=== PATIENT | female | born 1935 | race Hispanic/Latino ===

== ENCOUNTER 2018-08-14 14:44 | Observation (INO) | payer MEDICARE ==
[~2018-08-14] VITALS: Ht 157.5 cm; Wt 67.8 kg
[2018-08-14] MEDS ORDERED: SODIUM CHLORIDE 0.9% 1000ML 1,000 ML IV STA (15:03)
--- NOTE | 2018-08-14 15:05 | NUR ---
DR. FLORES AT BEDSIDE FOR PATIENT EVAL AT THIS TIME.
--- NOTE | 2018-08-14 15:25 | NUR ---
X-RAY AT BEDSIDE FOR CXR.
[2018-08-14 15:33] LABS: BASOPHILS % 0.4 % (0.0-1.0); EOSINOPHILS % 0.3 % (0.0-6.0); HEMATOCRIT 44.5 % (34.2-44.1); HEMOGLOBIN 15.2 g/dL (12.0-16.0); LYMPHOCYTES # (AUTO) 1.1 (1.0-3.2); LYMPHOCYTES % 16.2 % (18.0-39.1); MEAN CORPUSCULAR HGB CONC 34.2 g/dL (31-35); MEAN CORPUSCULAR VOLUME 90.8 fL (81-99); MONOCYTES # (AUTO) 0.6 (0.2-0.8); MONOCYTES % 8.3 % (4.4-11.3); NEUTROPHILS # (AUTO) 5.1 (2.1-6.9); NEUTROPHILS % 74.5 % (38.7-80.0); PLATELET COUNT 253 x10e3/uL (140-360); RED CELL DISTRIBUTION WIDTH 13.2 % (11.7-14.4)
--- NOTE | 2018-08-14 15:43 | Diagnostic Imaging Report ---
EXAMINATION: CHEST SINGLE (PORTABLE) COMPARISON: None INDICATION: ^NEAR-SYNCOPE ^[id number] ^1524 DISCUSSION: Frontal view of the chest obtained at 1530 hours. HEART AND MEDIASTINUM: The heart is enlarged. The aorta is mildly ectatic. LINES: None. LUNGS: The lungs are well inflated and clear. No pneumonia or pulmonary edema. PLEURA: No pleural effusion or pneumothorax. BONES AND SOFT TISSUES: No focal osseous lesion. The soft tissues are normal. IMPRESSION: Mild cardiomegaly. No evidence of pulmonary edema or CHF. Signed by: Dr. Rose Keyes MD on 08/14/2018 3:40 PM
[2018-08-14 15:46] LABS: CLARITY,URINE HAZY (CLEAR); COLOR,URINE YELLOW (YELLOW)
[2018-08-14 15:48] LABS: BILIRUBIN,URINE NEGATIVE (NEGATIVE); KETONES,URINE NEGATIVE (NEGATIVE); LEUKOCYTE ESTERASE ,URINE 1+ (NEGATIVE); NITRITE,URINE NEGATIVE (NEGATIVE); PROTEIN,URINE DIPSTICK TRACE (NEGATIVE); URINE UROBILINOGEN 0.2 mg/dL (0.2 - 1)
[2018-08-14 16:00] LABS: INR 0.94; PROTHROMBIN TIME 13.1 seconds (11.9-14.5)
[2018-08-14 16:01] LABS: BACTERIA,URINE FEW /HPF; EPITHELIAL CELLS,URINE FEW /LPF; MUCUS,URINE FEW (RARE); PARTIAL THROMBOPLASTIN TIME 38.7 seconds (23.8-35.5); RBC,URINE 0-5 /HPF (0-5); WBC,URINE (MAN) 0-5 /HPF (0-5)
[2018-08-14 16:08] LABS: ALBUMIN 3.9 g/dL (3.5-5.0); ALBUMIN/GLOBULIN RATIO 1.1 (0.8-2.0); CALCIUM 9.4 mg/dL (8.4-10.2); CREATININE, SERUM 1.06 mg/dL (0.57-1.11); MAGNESIUM 2.3 MG/DL (1.3-2.1)
[2018-08-14 16:14] LABS: CREATINE KINASE MB 0.8 ng/mL (0-5.0)
--- NOTE | 2018-08-14 16:30 | Diagnostic Imaging Report ---
CT BRAIN WO HISTORY: Syncope COMPARISON: None. Technique: Noncontrast axial scans were obtained from skull base to the vertex. Coronal and sagittal reconstructions obtained from the axial data. One or more of the following dose reduction techniques were used: Automated exposure control, adjustment of the mA and/or kV according to patient size, and/or utilization of iterative reconstruction technique. DISCUSSION: Scalp/Skull: Multiple small nodular areas of inner table scalloping along the paramedian occipital bone are likely due to arachnoid granulations. Otherwise, unremarkable. Brain sulci: Mildly prominent. Ventricles: Compensatory dilatation. Extra-axial spaces: No masses or fluid collections. Carotid siphon calcifications are present. Parenchyma: Mild bilateral deep white matter hypodensity is likely chronic microvascular ischemic change. There is an old cortical infarct in the medial left cerebellum. Otherwise, no masses, hemorrhage, or large vascular territory acute infarct. Dural sinuses: No abnormal densities. Sellar/Suprasellar region: Intact. Skull base: Intact. Incidental findings: IMPRESSION: 1. No acute intracranial abnormalities. 2. Mild supratentorial chronic microvascular ischemic change. Mild generalized cerebral volume loss. 3. 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 Signed by: Dr. Caleb Rose M.D. on 08/14/2018 4:27 PM
--- NOTE | 2018-08-14 16:35 | Diagnostic Imaging Report ---
CT CERVICAL SPINE WO HISTORY: Neck pain COMPARISON: Concurrent head CT TECHNIQUE: CT of the cervical spine without contrast. Sagittal and coronal reformations were created. One or more of the following dose reduction techniques were used: Automated exposure control, adjustment of the mA and/or kV according to patient size, and/or utilization of iterative reconstruction technique. FINDINGS: Mild bone demineralization limits osseous evaluation. Cervical lordosis is straightened. There is no significant scoliosis. No definite acute fracture or compression deformity is seen. The craniocervical junction is intact. No gross spinal canal masses are seen. The paravertebral and paraspinal soft tissues are unremarkable. Mild to moderate multilevel spondylosis is most prominent at C5-C6. There is at least mild canal stenosis at C5-C6 due to posterior disc osteophyte complex. Mild atlantoaxial arthrosis is present. Multilevel facet arthrosis is present, left side greater than right. There is associated grade 1 anterolisthesis of C6 on C7. There is mild scarring in the lung apices. Mild bilateral carotid bulb calcifications are present. IMPRESSION: 1. No acute osseous abnormalities. 2. Mild to moderate multilevel spondylosis, most prominent at C5-C6. At least mild degenerative canal stenosis at C5-C6. 3. Multilevel facet arthrosis, left side greater than right. Associated grade 1 anterolisthesis of C6 on C7. Signed by: Dr. Caleb Rose M.D. on 08/14/2018 4:31 PM
--- NOTE | 2018-08-14 16:59 | NUR ---
1645- 1L NS atarted WO to left 20G IV. Hdez
[2018-08-14 17:02] LABS: B-TYPE NATRIURETIC PEPTIDE2 122.2 pg/mL (0-100)
--- NOTE | 2018-08-14 18:09 | Diagnostic Imaging Report ---
CT angiogram of the chest, abdomen and pelvis History: Syncope, diffuse pain and weakness. Technique: Multidetector helical CT angiography was carried out from the lung bases to the proximal femurs before and following intravenous contrast administration. Thin section image collimation was utilized and 3-D images were postprocessed on a separate workstation. Parenchymal organ imaging will be limited by arterial phase of contrast administration. RADIATION DOSE: Total DLP: 878.46 mGy*cm Estimated effective dose: (DLP x 0.015 x size factor) mSv CTDIvol has been reviewed. It is below the limits set by the Radiation Protocol Committee (RPC). Dose reduction techniques used: Automated exposure control, adjustment of the mAs and/or kVp according to patient size, standardized low-dose protocol, and/or iterative reconstruction technique. Comparison: None CT scan thorax: Pleura: No pleural effusion or pleural based mass.. Heart: Mildly enlarged. No pericardial effusion. Mild burden of coronary artery atherosclerosis. Lymph nodes: No enlarged axillary, supraclavicular, mediastinal, or hilar lymph nodes. Pulmonary vessels: Main pulmonary artery measures 2.9 cm in diameter. No filling defects. Pulmonary parenchyma: Mild burden of centrilobular emphysema. Subpleural calcified granuloma in the lateral right upper lobe measures 3 mm. Lateral right upper lobe nodule measures 3 mm. Mild bibasilar atelectasis and linear foci of subsegmental atelectasis in the posterior upper lobes. CT scan of the abdomen: Liver: Steatosis. No mass Spleen: Normal in attenuation and size without mass. Pancreas: Normal in attenuation without mass. The pancreas duct in the head measures 4 mm. Adrenal glands: No evidence for mass.. Gallbladder: Present. No wall thickening, gallstone or ductal dilatation.. Retroperitoneum: No lymphadenopathy or hemorrhage. Kidneys: No evidence of calculus. Symmetric enhancement of the parenchyma. No enhancing mass or hydronephrosis. Bowel and mesentery: Stomach:Normal. Small bowel:Normal in diameter with normal wall thickness. Large bowel:A few scattered diverticula. No associated inflammation. Normal diameter with normal wall thickness. Appendix: Not visualized and may be absent or collapsed. Peritoneum: No free fluid or fluid collection. The uterus is absent. There are no adnexal masses. Bladder is well-distended and appears normal.. Bones: Mild degenerative changes of the spine. No compression deformities or listhesis. Soft tissues: Unremarkable. CT angiography: 1. Aortic sinus: 3.3 x 3.5 cm. 2. Sinotubular junction: 2.7 x 2.6 cm 3. Proximal descending aorta:3.1 x 3.2 cm 4. Proximal aortic arch:3.1 cm 5. Mid aortic arch:2.8 cm 6. Distal aortic arch:2.6 x 2.9 cm 7. Descending thoracic aorta:2.4 x 2.5 cm 8. Aorta at the diaphragm:2.3 cm 9. Aorta at the celiac artery:2.0 x 2.1 cm 10. Aorta at the cranial most renal artery:1.6 cm 11. Aorta at the caudal-most renal artery:1.6 cm 12. Infrarenal aorta: 1.5 cm 13. Bifurcation:1.4 x 1.5 cm 14. Morphology:No evidence of mural hematoma, periaortic inflammation or displaced mural calcification. There are scattered calcified plaques throughout, the greatest burden in the abdominal aorta and iliac arteries. No evidence of dissection. No penetrating ulcer. Takeoff of the great vessels is conventional. No stenosis at the origins. Celiac artery: Mild narrowing of the origin of less than 50%. Calcifications at the origin. SMA: Widely patent with calcifications at the origin. RAFITA: Patent. Iliac arteries: Right common iliac artery measures 9 mm. Left common iliac artery measures 9 mm. There is a small amount of thrombus in the origin of the left common iliac artery narrowing the lumen by approximately 10%. The internal and external iliac arteries and common femoral arteries are widely patent with scattered atherosclerotic plaque. IMPRESSION: 1. No evidence of aortic aneurysm or dissection. 2. No evidence of pulmonary embolus. 3. Mild cardiomegaly. Atherosclerosis. 4. Mild burden of centrilobular emphysema. Right pulmonary nodules. Recommend annual surveillance with low-dose CT of the chest if there are risk factors for malignancy. 5. Steatosis. 6. No evidence for bowel obstruction or inflammation. Diverticulosis coli. Nonvisualization of the appendix. Signed by: Dr. Rose Keyes MD on 08/14/2018 6:06 PM
[2018-08-14] MEDS ORDERED: IOPAMIDOL 370 MG/ML 200 ML INFUS..BTL INJ ONE (18:23)
[2018-08-14] MEDS ORDERED: SODIUM CHLORIDE 0.9% 100 ML 100 ML ONE (18:23)
--- NOTE | 2018-08-14 19:10 | NUR ---
REPORT GIVEN TO RIVKA HERRON ELECTRICIAN DECK NURSE
[2018-08-14] MEDS ORDERED: ONDANSETRON HCL INJ 2MG/ML 2ML 2 MG/ML VIAL IV PRN (20:15)
[2018-08-14] MEDS ORDERED: TRAMADOL HCL 50 MG TAB PO PRN (20:15)
[2018-08-14] MEDS ORDERED: SODIUM CHLORIDE 0.9% 1000ML 1,000 ML IV ONE (20:15)
--- OUTSIDE RECORDS SUMMARY | 2018-08-14 20:19 | XMS REPORT | Clinical Summary ---
Author Author [facility] Organization [facility] Address Unknown Phone Unavailable Care Team Providers Care Counter Pocket Trimmer Name Role Phone Brandee Muñiz MD PCP Allergies No Known Allergies Medications End Date Status Medication Sig Dispensed Refills Start Date Active METOPROLOL SUCCINATE ORAL Take by 0 mouth. Active traMADol (ULTRAM) 50 mg Take 50 mg by 0 tablet mouth every 6 (six) hours as needed for Pain. Active HYDROcodone-acetaminophen Take 1 tablet 0 (NORCO 5-325) 5-325 mg by mouth per tablet every 6 (six) hours as needed for Pain. Active AMLODIPINE BESYLATE Take by 0 (AMLODIPINE ORAL) mouth. Active alendronate (FOSAMAX) 35 Take 35 mg by 0 MG tablet mouth every 7 days Take in the morning with a full glass of water, on an empty stomach, and do not take anything else by mouth or lie down for the next 30 min. . Active pravastatin (PRAVACHOL) Take 80 mg by 0 80 MG tablet mouth daily. Active latanoprost (XALATAN) 1 drop 0 0.005 % ophthalmic nightly. solution Active pantoprazole (PROTONIX) Take 40 mg by 0 40 MG tablet mouth daily. Active Problems Not on file Social History Date Tobacco Use Types Packs/Day Years Used Never Smoker Alcohol Use Drinks/Week oz/Week Comments No Sex Assigned at Date Recorded Not on file Industry Job Start Date Occupation Not on file Not on file Not on file Travel End Travel History Travel Start No recent travel history available. Last Filed Vital Signs Not on file Plan of Treatment Not on file Results Not on fileafter 08/13/2017 Insurance Payer Benefit Subscriber ID Type Phone Address Plan / Group [facility] xxxxxxxxxxx MEDICARE ADV
--- OUTSIDE RECORDS SUMMARY | 2018-08-14 20:20 | XMS REPORT ---
Author Author [facility] Address Unknown Phone Unavailable Care Team Providers Care Echometer Engineer Name Role Phone Sedrick FLORES Unavailable Unavailable Problems This patient has no known problems. Allergies, Adverse Reactions, Alerts This patient has no known allergies or adverse reactions. Medications This patient has no known medications. Results Test Description Test Time Test Comments Text Results Atomic Results Result Comments CTA CHEST 2018-08-14 17:49:00 [facility] [address] [id number] Patient Name: URMILA LORD MR #: [id number] : 1935 Age/Sex: 83/F Req #: [id number] [facility] Physician: Ordered by: ABHAY FLORES MD Report #: [id number] Location: ER Room/Bed: Procedure: [id number] CT/CTA CHEST Exam Date: 08/14/18 Exam Time: 1700 REPORT STATUS: Signed CT angiogram of the chest, abdomen and pelvis History: Syncope, diffuse pain and weakness. Technique: Multidetector helical CT angiography was carried out from the lung bases to the proximal femurs before and following intravenous contrast administration. Thin section image collimation was utilized and 3-D images were postprocessed on a separate workstation. Parenchymal organ imaging will be limited by arterial phase of contrast administration. RADIATION DOSE: Total DLP: 878.46 mGy*cm Estimated effective dose: (DLP x 0.015 x size factor) mSv CTDIvol has been reviewed. It is below the limits set by the Radiation Protocol Committee (RPC). Dose reduction techniques used: Automated exposure control, adjustment of the mAs and/or kVp according to patient size, standardized low- dose protocol, and/or iterative reconstruction technique. Comparison: None CT scan thorax: Pleura: No pleural effusion or pleural based mass.. Heart: Mildly enlarged. No pericardial effusion. Mild burden of coronary artery atherosclerosis. Lymph nodes: No enlarged axillary, supraclavicular, mediastinal, or hilar lymph nodes. Pulmonary vessels: Main pulmonary artery measures 2.9 cm in diameter. No filling defects. Pulmonary parenchyma: Mild burden of centrilobular emphysema. Subpleural calcified granuloma in the lateral right upper lobe measures 3 mm. Lateral right upper lobe nodule measures 3 mm. Mild bibasilar atelectasis and linear foci of subsegmental atelectasis in the posterior upper lobes. CT scan of the abdomen: Liver: Steatosis. No mass Spleen: Normal in attenuation and size without mass. Pancreas: Normal in attenuation without mass. The pancreas duct in the head measures 4 mm. Adrenal glands: No evidence for mass.. Gallbladder: Present. No wall thickening, gallstone or ductal dilatation.. Retroperitoneum: No lymphadenopathy or hemorrhage. Kidneys: No evidence of calculus. Symmetric enhancement of the parenchyma. No enhancing mass or hydronephrosis. Bowel and mesentery: Stomach:Normal. Small bowel:Normal in diameter with normal wall thickness. Large bowel:A few scattered diverticula. No associated inflammation. Normal diameter with normal wall thickness. Appendix: Not visualized and may be absent or collapsed. Peritoneum: No free fluid or fluid collection. The uterus is absent. There are no adnexal masses. Bladder is well-distended and appears normal.. Bones: Mild degenerative changes of the spine. No compression deformities or listhesis. Soft tissues: Unremarkable. CT angiography: 1. Aortic sinus: 3.3 x 3.5 cm. 2. Sinotubular junction: 2.7 x 2.6 cm 3. Proximal descending aorta:3.1 x 3.2 cm 4. Proximal aortic arch:3.1 cm 5. Mid aortic arch:2.8 cm 6. Distal aortic arch:2.6 x 2.9 cm 7. Descending thoracic aorta:2.4 x 2.5 cm 8. Aorta at the diaphragm:2.3 cm 9. Aorta at the celiac artery:2.0 x 2.1 cm 10. Aorta at the cranial most renal artery:1.6 cm 11. Aorta at the caudal-most renal artery:1.6 cm 12. Infrarenal aorta: 1.5 cm 13. Bifurcation:1.4 x 1.5 cm 14. Morphology:No evidence of mural hematoma, periaortic inflammation or displaced mural calcification. There are scattered calcified plaques throughout, the greatest burden in the abdominal aorta and iliac arteries. No evidence of dissection. No penetrating ulcer. Takeoff of th e great vessels is conventional. No stenosis at the origins. Celiac artery: Mild narrowing of the origin of less than 50%. Calcifications at the origin. SMA: Widely patent with calcifications at the origin. RAFITA: Patent. Iliac arteries: Right common iliac artery measures 9 mm. Left common iliac artery measures 9 mm. There is a small amount of thrombus in the origin of the left common iliac artery narrowing the lumen by approximately 10%. The internal and external iliac arteries and common femoral arteries are widely patent with scattered atherosclerotic plaque. IMPRESSION: 1. No evidence of aortic aneurysm or dissection. 2. No evidence of pulmonary embolus. 3. Mild cardiomegaly. Atherosclerosis. 4. Mild burden of centrilobular emphysema. Right pulmonary nodules. Recommend annual surveillance with low-dose CT of the chest if there are risk factors for malignancy. 5. Steatosis. 6. No evidence for bowel obstruction or inflammation. Diverticulosis coli. Nonvisualization of the appendix. Signed by: Dr. Haydee Keyes MD on 08/14/2018 6:06 PM Dictated By: HAYDEE KEYES MD 05 Transcribed By: SHARONDA on 08/14/181805 COPY TO: ABHAY FLORES MD CTA ABD/PELVIS 2018-08-14 17:49:00 [address] [address] Patient Name: URMILA LORD MR #: [id number] : 1935 Age/Sex: 83/F Req #: [id number] Adm Physician: Ordered by: ABHAY FOLRES MD Report #: [id number] Location: ER Room/Bed: Procedure: [id number] CT/CTA ABD/PELVIS Exam Date: 08/14/18 Exam Time: 1700 REPORT STATUS: Signed CT angiogram of the chest, abdomen and pelvis History: S yncope, diffuse pain and weakness. Technique: Multidetector helical CT angiography was carried out from the lung bases to the proximal femurs before and following intravenous contrast administration. Thin section image collimation was utilized and 3-D images were postprocessed on a separate workstation. Parenchymal organ imaging will be limited by arterial phase of contrast administration. RADIATION DOSE: Total DLP: 878.46 mGy*cm Estimated effective dose: (DLP x 0.015 x size factor) mSv CTDIvol has been reviewed. It is below the limits set by the Radiation Protocol Committee (RPC). Dose reduction techniques used: Automated exposure control, adjustment of the mAs and/or kVp according to patient size, standardized low-dose protocol, and/or iterative reconstruction technique. Comparison: None CT scan thorax: Pleura: No pleural effusion or pleural based mass.. Heart: Mildly enlarged. No pericardial effusion. Mild burden of coronary artery atherosclerosis. Lymph nodes: No enlarged axillary, supraclavicular, mediastinal, or hilar lymph nodes. Pulmonary vessels: Main pulmonary artery measures 2.9 cm in diameter. No filling defects. Pulmonary parenchyma: Mild burden of centrilobular emphysema. Subpleural calcified granuloma in the lateral right upper lobe measures 3 mm. Lateral right upper lobe nodule measures 3 mm. Mild bibasilar atelectasis and linear foci of subsegmental atelectasis in the posterior upper lobes. CT scan of the abdomen: Liver: Steatosis. No mass Spleen: Normal in a ttenuation and size without mass. Pancreas: Normal in attenuation without mass. The pancreas duct in the head measures 4 mm. Adrenal glands: No evidence for mass.. Gallbladder: Present. No wall thickening, gallstone or ductal dilatation.. Retroperitoneum: No lymphadenopathy or hemorrhage. Kidneys: No evidence of calculus. Symmetric enhancement of the parenchyma. No enhancing mass or hydronephrosis. Bowel and mesentery: Stomach:Normal. Small bowel:Normal in diameter with normal wall thickness. Large bowel:A few scattered diverticula. No associated inflammation. Normal diameter with normal wall thickness. Appendix: Not visualized and may be absent or collapsed. Peritoneum: No free fluid or fluid collection. The uterus is absent. There are no adnexal masses. Bladder is well-distended and appears normal.. Bones: Mild degenerative changes of the spine. No compression deformities or listhesis. Soft tissues: Unremarkable. CT angiography: 1. Aortic sinus: 3.3 x 3.5 cm. 2. Sinotubular junction: 2.7 x 2.6 cm 3. Proximal descending aorta:3.1 x 3.2 cm 4. Proximal aortic arch:3.1 cm 5. Mid aortic arch:2.8 cm 6. Distal aortic arch:2.6 x 2.9 cm 7. Descending thoracic aorta:2.4 x 2.5 cm 8. Aorta at the diaphragm:2.3 cm 9. Aorta at the celiac artery:2.0 x 2.1 cm 10. Aorta at the cranial most renal artery:1.6 cm 11. Aorta at the caudal-most renal artery:1.6 cm 12. Infrarenal aorta: 1.5 cm 13. Bifurcation:1.4 x 1.5 cm 14. Morphology:No evidence of mural hematoma, periaortic inflammation or displaced mural calcification. There are scattered calcified plaques throughout, the greatest burden in the abdominal aorta and iliac arteries. No evidence of dissection. No penetrating ulcer. Takeoff of the great vessels is conventional. No stenosis at the origins. Celiac artery: Mild narrowing of the origin of less than 50%. Calcifications at the origin. SMA: Widely patent with calcifications at the origin. RAFITA: Patent. Iliac arteries: Right common iliac artery measures 9 mm. Left common iliac artery measures 9 mm. There is a small amount of thrombus in the origin of the left common iliac artery narrowing the lumen by approximately 10%. The internal and external iliac arteries and common femoral arteries are widely patent with scattered atherosclerotic plaque. IMPRESSION: 1. No evidence of aortic aneurysm or dissection. 2. No evidence of pulmonary embolus. 3. Mild cardiomegaly. Atherosclerosis. 4. Mild burden of centrilobular emphysema. Right pulmonary nodules. Recommend annual surveillance with low-dose CT of the chest if there are risk factors for malignancy. 5. Steatosis. 6. No evidence for bowel obstruction or inflammation. Diverticulosis coli. Nonvisualization of the appendix. Signed by: Dr. Haydee Keyes MD on 08/14/2018 6:06 PM Dictated By: HAYDEE KEYES MD 05 Transcribed By: SHARONDA on 08/14/181805 COPY TO: ABHAY FLORES MD CT BRAIN WO 2018-08-14 16:23:00 [address] [address] Patient Name: URMILA LORD MR #: [id number] : 1935 Age/Sex: 83/F Req #: [id number] Adm Physician: Ordered by: ABHAY FLORES MD Report #: [id number] Location: ER Room/Bed: Procedure: [id number] CT/CT BRAIN WO Exam Date: 08/14/18 Exam Time: 1550 REPORT STATUS: Signed CT BRAIN WO HISTORY: Syncope COMPARISON: None. Technique: Noncontrast axial scans were obtained from skull base to the vertex. Coronal and sagittal reconstructions obtained from the axial data. One or more of the following dose reduction techniques were used: Automated exposure control, adjustment of the mA and/or kV according to patient size, and/or utilization of iterative reconstruction technique. DISCUSSION: Scalp/Skull: Multiple small nodular areas of inner table scalloping along the paramedian occipital bone are likely due to arachnoid granulations. Otherwise, unremarkable. Brain sulci: Mildly prominent. Ventricles: Compensatory dilatation. Extra-axial spaces: No masses or fluid collections. Carotid siphon calcifications are present. Parenchyma: Mild bilateral deep white matter hypodensity is likely chronic microvascular ischemic change. There is an old cortical infarct in the medial left cerebellum. Otherwise, no masses, hemorrhage, or large vascular territory acute infarct. Dural si nuses: No abnormal densities. Sellar/Suprasellar region: Intact. Skull base: Intact. Incidental findings: IMPRESSION: 1. No acute intracranial abnormalities. 2. Mild supratentorial chronic microvascular ischemic change. Mild generalized cerebral volume loss. 3. 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 Signed by: Dr. Caleb Rose M.D. on 08/14/2018 4:27 PM Dictated By: CALEB ROSE MD 26 Transcribed By: SHARONDA on 08/14/181626 COPY TO: ABHAY FLORES MD CT CERVICAL SPINE WO 2018-08-14 16:22:00 [address] [address] Patient Name: URMILA LORD MR #: [id number] : 1935 Age/Sex: 83/F Req #: [id number] Adm Physician: Ordered by: ABHAY FLORES MD Report #: [id number] Location: ER Room/Bed: Procedure: [id number] CT/CT CERVICAL SPINE WO Exam Date: 08/14/18 Exam Time: 1550 REPORT STATUS: Signed CT CERVICAL SPINE WO HISTORY: Neck pain AMALIA RISON: Concurrent head CT TECHNIQUE: CT of the cervical spine without contrast. Sagittal and coronal reformations were created. One or more of the following dose reduction techniques were used: Automated exposure control, adjustment of the mA and/or kV according to patient size, and/or utilization of iterative reconstruction technique. FINDINGS: Mild bone demineralization limits osseous evaluation. Cervical lordosis is straightened. There is no significant scoliosis. No definite acute fracture or compression deformity is seen. The craniocervical junction is intact. No gross spinal canal masses are seen. The paravertebral and paraspinal soft tissues are unremarkable. Mild to moderate multilevel spondylosis is most prominent at C5-C6. There is at least mild canal stenosis at C5-C6 due to posterior disc osteophyte complex. Mild atlantoaxial arthrosis is present. Multilevel facet arthrosis is present, left side greater than right. There is associated grade 1 anterolisthesis of C6 on C7. There is mild scarring in the lung apices. Mild bilateral carotid bulb calcifications are present. IMPRESSION: 1. No acute osseous abnormalities. 2. Mild to moderate multilevel spondylosis, most prominent at C5-C6. At least mild degenerative canal stenosis at C5-C6. 3. Multilevel facet arthrosis, left side greater than right. Associated grade 1 anterolisthesis of C6 on C7. Signed by: Dr. Caleb Rose M.D. on 08/14/2018 4:31 PM Dictated By: CALEB ROSE MD 1631 Transcribed By: SHARONDA on 08/14/18 1631 COPY TO: ABHAY FLORES MD CHEST SINGLE (PORTABLE) 2018-08-14 15:39:00 [address] [address] Patient Name: URMILA LORD MR #: [id number] : 1935 Age/Sex: 83/F Req #: [id number] Adm Physician: Ordered by: ABHAY FLORES MD Report #: [id number] Location: ER Room/Bed: Procedure: [id number] DX/CHEST SINGLE (PORTABLE) Exam Date: 08/14/18 Exam Time: 1524 REPORT STATUS: Signed EXAMINATION: CHEST SINGLE (PORTABLE) COMPARIS ON: None INDICATION: NEAR-SYNCOPE [id number] DISCUSSION: Frontal view of the chest obtained at 1530 hours. HEART AND MEDIASTINUM: The heart is enlarged. The aorta is mildly ectatic. LINES: None. LUNGS: The lungs are well inflated and clear. No pneumonia or pulmonary edema. PLEURA: No pleural effusion or pneumothorax. BONES AND SOFT TISSUES: No focal osseous lesion. The soft tissues are normal. IMPRESSION: Mild cardiomegaly. No evidence of pulmonary edema or CHF. Signed by: Dr. Haydee Keyes MD on 08/14/2018 3:40 PM Dictated By: HAYDEE KEYES MD 1540 Transcribed By: SHARONDA on 08/14/18 8650 COPY TO: ABHAY FLORES MD
[2018-08-14] MEDS: FAMOTIDINE 20 MG/2 ML VIAL IV SCH (22:07)
[2018-08-14 22:21] VITALS: BP 173/73
--- NOTE | 2018-08-14 22:21 | NUR ---
patient is a new admit that arrived via stretcher. patient is awake and talking. patient has been helped into the bed. bed is in lowest position and call payne is within reach. will continue to monitor patient.
--- NOTE | 2018-08-14 22:21 | NUR ---
patient arrived on unit with blood pressure of 173/73. patient states she takes blood pressure medicines at home but cant remember the name of medication. MD notified. received new order for blood pressure medication. MD states to give one dose now as well. will continue to monitor patients blood pressure.
[2018-08-14 22:30] VITALS: BP 173/73
[2018-08-14 22:42] VITALS: BP 173/73
--- NOTE | 2018-08-14 22:45 | NUR ---
patient states she takes medications at home but doesn't remember the name of the drugs. daughter states she will go to patients house and retrieve medication list.
[2018-08-15] VITALS: BP 137/63
[2018-08-15 00:17] LABS: CREATINE KINASE MB 0.8 ng/mL (0-5.0)
[2018-08-15 04:00] VITALS: BP 114/56
[2018-08-15 05:14] LABS: BASOPHILS % 0.4 % (0.0-1.0); EOSINOPHILS # (AUTO) 0.2 (0.0-0.4); EOSINOPHILS % 2.5 % (0.0-6.0); HEMATOCRIT 41.4 % (34.2-44.1); HEMOGLOBIN 13.8 g/dL (12.0-16.0); LYMPHOCYTES # (AUTO) 2.8 (1.0-3.2); LYMPHOCYTES % 37.6 % (18.0-39.1); MEAN CORPUSCULAR HEMOGLOBIN 30.7 pg (28-32); MEAN CORPUSCULAR HGB CONC 33.3 g/dL (31-35); MONOCYTES # (AUTO) 0.8 (0.2-0.8); MONOCYTES % 10.7 % (4.4-11.3); NEUTROPHILS # (AUTO) 3.6 (2.1-6.9); NEUTROPHILS % 48.5 % (38.7-80.0); PLATELET COUNT 229 x10e3/uL (140-360); RED CELL DISTRIBUTION WIDTH 13.2 % (11.7-14.4)
[2018-08-15 05:43] LABS: CREATINE KINASE MB 0.8 ng/mL (0-5.0)
[2018-08-15 06:02] LABS: ALANINE AMINOTRANSFERASE 19 IU/L (0-55); ALBUMIN 3.2 g/dL (3.5-5.0); ALBUMIN/GLOBULIN RATIO 0.9 (0.8-2.0); ALKALINE PHOSPHATASE 59 IU/L (40-150); ANION GAP 12.8 mmol/L (8-16); BLOOD UREA NITROGEN 14 mg/dL (7-26); BUN/CREATININE RATIO 16 (6-25); CALCIUM 8.4 mg/dL (8.4-10.2); CARBON DIOXIDE 25 mmol/L (22-29); CHLORIDE 107 mmol/L (98-107); CHOL/HDL RATIO 3.2 (3.0-3.6); CHOLESTEROL 156 MD/DL (0-199); CREATININE, SERUM 0.87 mg/dL (0.57-1.11); EST GLOMERULAR FILTRATION RATE > 60 ML/MIN (60-); GLUCOSE 86 mg/dL (74-118); HDL CHOLESTEROL 49 MG/DL (40-60); LDL CHOLESTEROL 81 MG/DL (60-130); POTASSIUM 3.8 mmol/L (3.5-5.1); SODIUM 141 mmol/L (136-145); TRIGLYCERIDES 131 MG/DL (0-149)
--- NOTE | 2018-08-15 06:59 | NUR ---
report given to day nurse. patient is resting comfortably in bed. bed is in lowest position and call payne is within reach.
[2018-08-15 08:10] VITALS: BP 123/58
[2018-08-15] MEDS: FAMOTIDINE 20 MG/2 ML VIAL IV SCH (08:10)
[2018-08-15 08:17] VITALS: BP 123/58
[2018-08-15] MEDS ORDERED: ASPIRIN 81 MG ENTERIC COATED PO SCH (09:00)
--- NOTE | 2018-08-15 09:00 | NUR ---
SOCIAL WORK INITIAL ASSESSMENT Diagnostics Sales Developer to bedside to discuss plan of care with patient/family. CM/SW role and care transitions discussed. Anticipated discharge plan discussed along with duration of care. CM/SW discussed patients right to make decisions in care. CM/SW work hours given. Patient lives: IN [facility] 3RD FLOOR WITH ELEVATOR Admit/Transfer: VIA ED POA/Emergency contact: DAUGHTER CONOR CARPENTER [phone] Current/Previous Home Health: NONE PCP/Follow-up Care: BAILEY RAMIREZ Current/Previous DME: ANNA Other Services: NONE Employment Status: NONE Areas of Concerns: NONE Referral Needs: NONE Education Needs: NONE IMM/PACHECO given and signed (if applicable): UPON ADMISSION Goal for discharge: RETURN HOME WITH DAUGHTER THE HOME WHEN ABLE CM/SW left business card at the bedside with contact information. Name and number was also written on the patients whiteboard. Patient verbalized understanding of discussion. CM will follow-up with ongoing discharge and transition of care needs.
[2018-08-15 12:03] VITALS: BP 121/60
--- NOTE | 2018-08-15 12:51 | NUR ---
patient alert and oriented and in no distress. Patient discharged and will be escorted from floor via wheelchair to personal auto for daughter to take back to assisted living facility. Discharge instructions given to the patient and daughter at this time, both verbalized understanding. IV discontinued, catheter in tact and small dressing applied.
[2018-08-15] MEDS ORDERED: NIFEDIPINE CR 30 MG TAB PO SCH (21:00)
--- NOTE | 2018-08-16 11:20 | Discharge Summary ---
PRIMARY CARE DOCTOR: Dr. Marilyn Roberts FINAL DIAGNOSIS: Left-sided cervical neck pain with blurry vision. SECONDARY DIAGNOSES: 1. Uncontrolled hypertension, better. 2. Gastroesophageal reflux disease. 3. Dyslipidemia. CONSULTANTS: None. PROCEDURES/STUDIES PERFORMED: 1. CTA of the chest, abdomen, and pelvis did not show any dissection nor pulmonary embolism. 2. Head CT did not show any acute disease. 3. C-spine CT was relatively benign. HISTORY: Per [facility] and [facility]. HOSPITAL COURSE: The patient was admitted with severe left-sided neck pain travelling up to left side of her scalp. Pain was so severe to the point that the patient had blurry vision, therefore the patient presented to the emergency room. Workup was benign. EKG was nonspecific. The patient does not know which blood pressure medicine she took, therefore one dose of nifedipine XR was given for her uncontrolled hypertension. Currently, the patient is feeling better. Potentially, this could be due to cervical spine arthralgia; however, her C-spine CT was not horrible. Alternatively, this could be due to trigeminal neuralgia versus atypical migraine. At this time, she is stable to be discharged to home. She did not have acute myocardial infarction with three sets of negative troponins. I have updated both daughters at the bedside and also her PCP. The patient will follow up with her PCP in a week. CONDITION ON DISCHARGE: Improved. DISCHARGE MEDICATIONS: Please see medication reconciliation form. MD ROMELIA Cagle/VALE /[id number]
== END 2018-08-15 13:00 | disposition home or self-care (01) ==
LOC: ER 14:44 → ERHOLD 20:17 → IMCU 22:21
PROVIDERS: ADMIT Internal Medicine; ATTEND Internal Medicine
DX: M54.2 Cervicalgia (principal); I10 Essential (primary) hypertension; K21.9 Gastro-esophageal reflux disease without esophagitis; E78.5 Hyperlipidemia, unspecified
CPT/HCPCS: 36415 ×2; 70450; 71045; 71275; 72125; 74174; 80053 ×2; 80061; 81001; 82150; 82550 ×2; 82553 ×2; 83605; 83690; 83735; 83880; 84484 ×2; 85025 ×2; 85610; 85730; 87040; 87086; 93005; 96361; 96374; 99284; G0378 ×2; J7030; Q9967

== ENCOUNTER 2020-09-10 09:57 | Emergency (ER) | payer MEDICARE ==
[~2020-09-10] VITALS: Ht 157.5 cm; Wt 67.6 kg
[2020-09-10] MEDS ORDERED: PREDNISONE20 MG PO (11:35)
[2020-09-10] MEDS ORDERED: VENTOLIN HFA18 GM INH (11:35)
[2020-09-10] MEDS ORDERED: AZITHROMYCIN250 MG PO (11:41)
== END 2020-09-10 11:46 | disposition home or self-care (01) ==
LOC: ER 10:06
DX: R04.2 Hemoptysis (principal); I10 Essential (primary) hypertension; K21.9 Gastro-esophageal reflux disease without esophagitis; E78.00 Pure hypercholesterolemia, unspecified
CPT/HCPCS: 71046; 83518; 87070; 93005; 99283

== ENCOUNTER 2020-11-15 01:47 | Emergency (ER) | payer MEDICARE ==
[~2020-11-15] VITALS: Ht 157.5 cm; Wt 67.6 kg
[~2020-11-15 01:47] MED LIST: AZITHROMYCIN250 MG PO; PREDNISONE20 MG PO; VENTOLIN HFA18 GM INH
[2020-11-15] MEDS ORDERED: LIDOCAINE 4% PATCH TP ONE (02:00)
[2020-11-15] MEDS ORDERED: HYDROCODONE/APAP 7.5MG-325MG 1 EA TAB PO PRN (02:00)
[2020-11-15] MEDS ORDERED: HYDROCODONE/APAP 7.5MG-325MG 1 EA TAB ONE (02:12)
[2020-11-15] MEDS ORDERED: ULTRAM50 MG PO (02:54)
[2020-11-15] MEDS ORDERED: BACLOFEN10 MG PO (11:42)
[2020-11-15] MEDS ORDERED: METOPROLOL SUCC50 MG PO (11:43)
[2020-11-15] MEDS ORDERED: PRAVASTATIN SOD80 MG PO (11:43)
[2020-11-15] MEDS ORDERED: AMLODIPINE BESYL5 MG PO (11:43)
[2020-11-15] MEDS ORDERED: FAMOTIDINE20 MG PO (11:44)
[2020-11-15] MEDS ORDERED: OMEPRAZOLE40 MG PO (11:44)
[2020-11-15] MEDS ORDERED: LOZOL 2.5MG2.5 MG PO (11:45)
== END 2020-11-15 02:59 | disposition home or self-care (01) ==
LOC: ER 02:35
DX: M25.512 Pain in left shoulder (principal); M19.012 Primary osteoarthritis, left shoulder; I10 Essential (primary) hypertension; K21.9 Gastro-esophageal reflux disease without esophagitis; E78.00 Pure hypercholesterolemia, unspecified
CPT/HCPCS: 99283

== ENCOUNTER 2020-11-15 10:50 | Inpatient (IN) | payer MEDICARE ==
[~2020-11-15] VITALS: Ht 157.5 cm; Wt 68.9 kg
[~2020-11-15 10:50] MED LIST changes: +ULTRAM50 MG PO
[2020-11-15 11:29] LABS: BASOPHILS % 0.3 % (0.0-1.0); EOSINOPHILS % 0.1 % (0.0-6.0); HEMATOCRIT 43.6 % (34.2-44.1); LYMPHOCYTES # (AUTO) 2.7 (1.0-3.2); LYMPHOCYTES % 25.6 % (18.0-39.1); MEAN CORPUSCULAR HEMOGLOBIN 31.1 pg (28-32); MEAN CORPUSCULAR HGB CONC 34.4 g/dL (31-35); MEAN CORPUSCULAR VOLUME 90.3 fL (81-99); MONOCYTES # (AUTO) 0.5 (0.2-0.8); MONOCYTES % 5.2 % (4.4-11.3); NEUTROPHILS # (AUTO) 7.1 (2.1-6.9); NEUTROPHILS % 68.4 % (38.7-80.0); PLATELET COUNT 289 x10e3/uL (140-360); RED BLOOD COUNT 4.83 x10e6/uL (3.6-5.1); RED CELL DISTRIBUTION WIDTH 13.1 % (11.7-14.4)
[2020-11-15 11:39] LABS: CLARITY,URINE CLEAR (CLEAR); COLOR,URINE YELLOW (YELLOW); KETONES,URINE NEGATIVE (NEGATIVE); LEUKOCYTE ESTERASE ,URINE NEGATIVE (NEGATIVE); NITRITE,URINE NEGATIVE (NEGATIVE); PROTEIN,URINE DIPSTICK NEGATIVE (NEGATIVE); URINE UROBILINOGEN 0.2 mg/dL (0.2 - 1)
[2020-11-15 11:42] LABS: ALANINE AMINOTRANSFERASE 22 IU/L (0-55); ALBUMIN 3.9 g/dL (3.5-5.0); ALBUMIN/GLOBULIN RATIO 1.1 (0.8-2.0); ALKALINE PHOSPHATASE 73 IU/L (40-150); AMYLASE 64 U/L (25-125); ANION GAP 16.9 mmol/L (8-16); BLOOD UREA NITROGEN 18 mg/dL (7-26); BUN/CREATININE RATIO 21 (6-25); CALCIUM 9.4 mg/dL (8.4-10.2); CARBON DIOXIDE 24 mmol/L (22-29); CHLORIDE 100 mmol/L (98-107); CREATINE KINASE 39 IU/L (29-168); CREATININE, SERUM 0.84 mg/dL (0.57-1.11); EST GLOMERULAR FILTRATION RATE > 60 ML/MIN (60-); GLUCOSE 179 mg/dL (74-118); LIPASE 20 U/L (8-78); MAGNESIUM 2.1 MG/DL (1.3-2.1); SODIUM 138 mmol/L (136-145)
[2020-11-15] MEDS ORDERED: BACLOFEN10 MG PO (11:42)
[2020-11-15 11:43] LABS: POTASSIUM 2.9 mmol/L (3.5-5.1)
[2020-11-15] MEDS ORDERED: PRAVASTATIN SOD80 MG PO (11:43)
[2020-11-15] MEDS ORDERED: AMLODIPINE BESYL5 MG PO (11:43)
[2020-11-15] MEDS ORDERED: METOPROLOL SUCC50 MG PO (11:43)
[2020-11-15] MEDS ORDERED: FAMOTIDINE20 MG PO (11:44)
[2020-11-15] MEDS ORDERED: OMEPRAZOLE40 MG PO (11:44)
[2020-11-15] MEDS ORDERED: LOZOL 2.5MG2.5 MG PO (11:45)
[2020-11-15] MEDS ORDERED: POTASSIUM CHLORIDE 20 MEQ TAB CR PO STA (11:58)
[2020-11-15 12:00] LABS: B-TYPE NATRIURETIC PEPTIDE2 209.6 pg/mL (0-100)
[2020-11-15] MEDS ORDERED: SODIUM CHLORIDE 0.9% 1000ML 1,000 ML IV ONE ×2 (12:00→14:30)
[2020-11-15] MEDS ORDERED: PIPERACILLIN/TAZOBACTAM 3.375 GM in SODIUM CHLORIDE 0.9% 50ML 50 ML IV ONE (12:00)
[2020-11-15] MEDS ORDERED: SODIUM CHLORIDE 0.9% 1000ML 1,000 ML ONE (12:01)
[2020-11-15 12:02] LABS: THYROID STIMULATING HORMONE 2.175 uIU/mL (0.350-4.940)
[2020-11-15] MEDS ORDERED: ONDANSETRON HCL INJ 2MG/ML 2ML 2 MG/ML VIAL IV STA (12:03)
[2020-11-15] MEDS ORDERED: SODIUM CHLORIDE 0.9% 100 ML ONE (12:23)
[2020-11-15] MEDS ORDERED: IOPAMIDOL 370 MG/ML 200 ML INFUS..BTL INJ ONE (12:23)
[2020-11-15 12:43] LABS: EPITHELIAL CELLS,URINE FEW /LPF; RBC,URINE 0-5 /HPF (0-5); WBC,URINE (MAN) 0-5 /HPF (0-5)
[2020-11-15] MEDS ORDERED: ONDANSETRON HCL INJ 2MG/ML 2ML 2 MG/ML VIAL IV PRN (14:45)
[2020-11-15] MEDS: D5.45%NS/KCL 20MEQ 1,000 ML IV SCH (16:32)
[2020-11-15 16:52] VITALS: BP 152/69
[2020-11-15 17:02] VITALS: BP 152/69
[2020-11-15 17:06] VITALS: BP 152/69
[2020-11-15] MEDS: PIPERACILLIN/TAZOBACTAM 3.375 GM in SODIUM CHLORIDE 0.9% 50ML 50 ML IV SCH (17:29)
[2020-11-15 19:58] LABS: CREATINE KINASE MB 1.6 ng/mL (0-5.0)
[2020-11-15 20:00] VITALS: BP_SYST 141; BP_SYST 162; BP_DIAS 70; BP_DIAS 76
[2020-11-15 22:37] VITALS: BP 162/70
[2020-11-16] VITALS (8 sets, daily range): BP systolic 123–169; BP diastolic 56–63
[2020-11-16] MEDS: ACETAMINOPHEN 325 MG TAB PO PRN (00:42)
[2020-11-16] MEDS: PIPERACILLIN/TAZOBACTAM 3.375 GM in SODIUM CHLORIDE 0.9% 50ML 50 ML IV SCH ×6 (05:32→23:57)
[2020-11-16] MEDS: D5.45%NS/KCL 20MEQ 1,000 ML IV SCH (05:52)
[2020-11-16 06:22] LABS: BASOPHILS % 0.4 % (0.0-1.0); EOSINOPHILS # (AUTO) 0.1 (0.0-0.4); EOSINOPHILS % 0.8 % (0.0-6.0); HEMATOCRIT 36.7 % (34.2-44.1); HEMOGLOBIN 12.5 g/dL (12.0-16.0); LYMPHOCYTES # (AUTO) 2.3 (1.0-3.2); LYMPHOCYTES % 30.5 % (18.0-39.1); MEAN CORPUSCULAR HEMOGLOBIN 31.6 pg (28-32); MEAN CORPUSCULAR HGB CONC 34.1 g/dL (31-35); MEAN CORPUSCULAR VOLUME 92.7 fL (81-99); MONOCYTES # (AUTO) 0.9 (0.2-0.8); MONOCYTES % 11.6 % (4.4-11.3); NEUTROPHILS # (AUTO) 4.3 (2.1-6.9); NEUTROPHILS % 56.4 % (38.7-80.0); PLATELET COUNT 232 x10e3/uL (140-360); RED BLOOD COUNT 3.96 x10e6/uL (3.6-5.1); RED CELL DISTRIBUTION WIDTH 13.6 % (11.7-14.4)
[2020-11-16 06:44] LABS: ALBUMIN/GLOBULIN RATIO 1.1 (0.8-2.0); ANION GAP 12.5 mmol/L (8-16); CALCIUM 8.4 mg/dL (8.4-10.2); CREATININE, SERUM 0.91 mg/dL (0.57-1.11); POTASSIUM 3.5 mmol/L (3.5-5.1)
[2020-11-16 07:07] LABS: CREATINE KINASE MB 1.1 ng/mL (0-5.0)
[2020-11-16] MEDS ORDERED: FUROSEMIDE INJ 10 MG/ML 2 ML VIAL IV ONE (12:15)
[2020-11-16] MEDS ORDERED: ALBUTEROL/IPRATROPIUM 3 ML NEB NEB PRN (13:00)
[2020-11-16] MEDS ORDERED: DOCUSATE SODIUM 100 MG CAP PO PRN (13:00)
[2020-11-16] MEDS ORDERED: DIPHENHYDRAMINE HCL 25 MG CAP PO PRN (13:00)
[2020-11-16] MEDS ORDERED: POTASSIUM CHLORIDE 20 MEQ TAB CR PO PRN (13:00)
[2020-11-16] MEDS ORDERED: BENZONATATE 100 MG CAP PO PRN (13:00)
[2020-11-16] MEDS ORDERED: DEXTROSE 50% SYRINGE 50 ML IV PRN (13:00)
[2020-11-16] MEDS ORDERED: LIDOCAINE 4% PATCH TP PRN (13:00)
[2020-11-16] MEDS ORDERED: MELATONIN 5 MG TABLET PO PRN (13:00)
[2020-11-16] MEDS ORDERED: TRAMADOL HCL 50 MG TAB PO PRN ×2 (13:00→14:45)
[2020-11-16] MEDS ORDERED: ACETAMINOPHEN 325 MG TAB PO PRN (13:00)
[2020-11-16] MEDS ORDERED: PIPERACILLIN/TAZOBACTAM 3.375 GM in SODIUM CHLORIDE 0.9% 50ML 50 ML IV SCH (14:00)
[2020-11-16] MEDS: Vancomycin IV 1 GM in SODIUM CHLORIDE 0.9% 250ML 250 ML IV SCH (14:31)
[2020-11-16 16:23] LABS: CREATINE KINASE MB 1.4 ng/mL (0-5.0)
[2020-11-16] MEDS: ENOXAPARIN SOD INJ 40 MG/0.4 ML SYR SC SCH (17:25)
[2020-11-16] MEDS: SIMVASTATIN 40 MG TAB PO SCH (21:00)
[2020-11-16] MEDS ORDERED: BELLADONNA ALK/PHENOBARBITAL 5 ML UDC PO ONE (23:45)
[2020-11-16] MEDS ORDERED: MAGNESIUM/ALUMINUM/SIMETHICONE 30 ML UDC PO ONE (23:45)
[2020-11-16] MEDS ORDERED: LIDOCAINE VISC 2% SOLN 15 ML UDC PO ONE (23:45)
[2020-11-16] MEDS ORDERED: DONNATAL/LIDOCAINE/MAALOX 30 ML SUSP PO ONE (23:45)
[2020-11-17] MEDS: Vancomycin IV 1 GM in SODIUM CHLORIDE 0.9% 250ML 250 ML IV SCH (00:42)
[2020-11-17] MEDS: PIPERACILLIN/TAZOBACTAM 3.375 GM in SODIUM CHLORIDE 0.9% 50ML 50 ML IV SCH ×4 (05:57→23:27)
[2020-11-17 06:20] LABS: BASOPHILS % 0.5 % (0.0-1.0); EOSINOPHILS # (AUTO) 0.2 (0.0-0.4); EOSINOPHILS % 2.9 % (0.0-6.0); HEMATOCRIT 37.8 % (34.2-44.1); HEMOGLOBIN 12.8 g/dL (12.0-16.0); LYMPHOCYTES # (AUTO) 2.3 (1.0-3.2); LYMPHOCYTES % 38.8 % (18.0-39.1); MEAN CORPUSCULAR HEMOGLOBIN 31.3 pg (28-32); MEAN CORPUSCULAR HGB CONC 33.9 g/dL (31-35); MEAN CORPUSCULAR VOLUME 92.4 fL (81-99); MONOCYTES # (AUTO) 0.7 (0.2-0.8); MONOCYTES % 12.4 % (4.4-11.3); NEUTROPHILS # (AUTO) 2.6 (2.1-6.9); NEUTROPHILS % 45.2 % (38.7-80.0); PLATELET COUNT 235 x10e3/uL (140-360); RED BLOOD COUNT 4.09 x10e6/uL (3.6-5.1); RED CELL DISTRIBUTION WIDTH 13.6 % (11.7-14.4)
[2020-11-17 06:48] LABS: ANION GAP 14.4 mmol/L (8-16); CALCIUM 8.4 mg/dL (8.4-10.2); CREATININE, SERUM 0.95 mg/dL (0.57-1.11); MAGNESIUM 2.1 MG/DL (1.3-2.1); PHOSPHORUS 2.9 MG/DL (2.3-4.7); POTASSIUM 3.4 mmol/L (3.5-5.1)
[2020-11-17 07:17] LABS: THYROID STIMULATING HORMONE 2.597 uIU/mL (0.350-4.940)
[2020-11-17] MEDS ORDERED: PANTOPRAZOLE SOD 40 MG TABEC PO SCH (07:30)
[2020-11-17] MEDS: AMLODIPINE BESYLATE 5 MG TAB PO SCH (09:00)
[2020-11-17] MEDS: FAMOTIDINE 20 MG TAB PO SCH (09:00)
[2020-11-17] MEDS: ENOXAPARIN SOD INJ 40 MG/0.4 ML SYR SC SCH (17:44)
[2020-11-17] MEDS: SIMVASTATIN 40 MG TAB PO SCH (20:29)
[2020-11-17] MEDS: ACETAMINOPHEN 325 MG TAB PO PRN (23:36)
[2020-11-18] MEDS: PIPERACILLIN/TAZOBACTAM 3.375 GM in SODIUM CHLORIDE 0.9% 50ML 50 ML IV SCH ×3 (05:27→18:00)
[2020-11-18 05:47] LABS: BASOPHILS % 0.4 % (0.0-1.0); EOSINOPHILS # (AUTO) 0.1 (0.0-0.4); EOSINOPHILS % 1.7 % (0.0-6.0); HEMATOCRIT 38.5 % (34.2-44.1); LYMPHOCYTES # (AUTO) 2.3 (1.0-3.2); LYMPHOCYTES % 33.4 % (18.0-39.1); MEAN CORPUSCULAR HEMOGLOBIN 31.1 pg (28-32); MEAN CORPUSCULAR HGB CONC 33.8 g/dL (31-35); MEAN CORPUSCULAR VOLUME 92.1 fL (81-99); MONOCYTES # (AUTO) 0.9 (0.2-0.8); MONOCYTES % 12.4 % (4.4-11.3); NEUTROPHILS # (AUTO) 3.6 (2.1-6.9); NEUTROPHILS % 51.8 % (38.7-80.0); PLATELET COUNT 222 x10e3/uL (140-360); RED BLOOD COUNT 4.18 x10e6/uL (3.6-5.1); RED CELL DISTRIBUTION WIDTH 13.5 % (11.7-14.4)
[2020-11-18 06:27] LABS: CALCIUM 8.3 mg/dL (8.4-10.2); CREATININE, SERUM 0.92 mg/dL (0.57-1.11)
[2020-11-18] MEDS: AMLODIPINE BESYLATE 5 MG TAB PO SCH (09:00)
[2020-11-18] MEDS: FAMOTIDINE 20 MG TAB PO SCH (09:00)
[2020-11-18] MEDS ORDERED: MIDAZOLAM HCL 2 MG/2 ML VIAL ONE (10:51)
[2020-11-18] MEDS ORDERED: FENTANYL CITRATE/PF 100MCG/2 ML INJ ONE (10:51)
[2020-11-18] MEDS ORDERED: LIDOCAINE HCL 2% LOCAL INJ 5 ML SDV VIAL INJ ONE (12:43)
[2020-11-18] MEDS ORDERED: POVIDONE IODINE 0.05% 0.05 % ML PO ONE (12:43)
[2020-11-18] MEDS ORDERED: PROPOFOL IV EMULSION 10 MG/ML 20 ML VIAL ONE (12:43)
[2020-11-18] MEDS: ENOXAPARIN SOD INJ 40 MG/0.4 ML SYR SC SCH (17:00)
[2020-11-18] MEDS: SIMVASTATIN 40 MG TAB PO SCH (21:00)
[2020-11-19] MEDS: PIPERACILLIN/TAZOBACTAM 3.375 GM in SODIUM CHLORIDE 0.9% 50ML 50 ML IV SCH ×5 (06:00→17:16)
[2020-11-19] MEDS: FAMOTIDINE 20 MG TAB PO SCH (09:00)
[2020-11-19] MEDS: AMLODIPINE BESYLATE 5 MG TAB PO SCH (09:00)
[2020-11-19 16:24] VITALS: BP 142/84
[2020-11-19] MEDS: ENOXAPARIN SOD INJ 40 MG/0.4 ML SYR SC SCH (17:43)
[2020-11-19 19:42] VITALS: BP 162/81
[2020-11-19 21:00] VITALS: BP 162/81
[2020-11-19] MEDS: SIMVASTATIN 40 MG TAB PO SCH (21:33)
[2020-11-19 23:44] VITALS: BP 153/73
[2020-11-20] VITALS (7 sets, daily range): BP systolic 139–154; BP diastolic 65–88
[2020-11-20] MEDS: PIPERACILLIN/TAZOBACTAM 3.375 GM in SODIUM CHLORIDE 0.9% 50ML 50 ML IV SCH ×2 (00:18→06:25)
[2020-11-20 05:37] LABS: BASOPHILS % 0.4 % (0.0-1.0); EOSINOPHILS # (AUTO) 0.3 (0.0-0.4); EOSINOPHILS % 3.7 % (0.0-6.0); HEMATOCRIT 37.8 % (34.2-44.1); HEMOGLOBIN 13.1 g/dL (12.0-16.0); LYMPHOCYTES % 29.7 % (18.0-39.1); MEAN CORPUSCULAR HEMOGLOBIN 31.3 pg (28-32); MEAN CORPUSCULAR HGB CONC 34.7 g/dL (31-35); MEAN CORPUSCULAR VOLUME 90.4 fL (81-99); MONOCYTES # (AUTO) 0.8 (0.2-0.8); MONOCYTES % 11.2 % (4.4-11.3); NEUTROPHILS # (AUTO) 3.7 (2.1-6.9); NEUTROPHILS % 54.7 % (38.7-80.0); PLATELET COUNT 234 x10e3/uL (140-360); RED BLOOD COUNT 4.18 x10e6/uL (3.6-5.1); RED CELL DISTRIBUTION WIDTH 13.2 % (11.7-14.4)
[2020-11-20 06:08] LABS: INR 1.08; PROTHROMBIN TIME 14.7 seconds (11.9-14.5)
[2020-11-20 06:10] LABS: ANION GAP 13.4 mmol/L (8-16); CALCIUM 8.5 mg/dL (8.4-10.2); CREATININE, SERUM 0.82 mg/dL (0.57-1.11); MAGNESIUM 2.1 MG/DL (1.3-2.1); POTASSIUM 3.4 mmol/L (3.5-5.1)
[2020-11-20] MEDS: AMLODIPINE BESYLATE 5 MG TAB PO SCH (09:00)
[2020-11-20] MEDS ORDERED: POTASSIUM CHLORIDE 20MEQ/100ML 200 ML IV ONE ×2 (09:30→15:00)
[2020-11-20] MEDS ORDERED: FENTANYL CITRATE/PF 100MCG/2 ML INJ ONE (11:15)
[2020-11-20] MEDS ORDERED: BUPIVACAINE HCL 0.5% INJ 30 ML VIAL INJ ONE (11:19)
[2020-11-20] MEDS ORDERED: ACETAMINOPHEN 1000 MG/100 ML 100 ML IV ONE (11:29)
[2020-11-20] MEDS ORDERED: SUGAMMADEX SODIUM 200 MG/2 ML VIAL IV ONE (11:30)
[2020-11-20] MEDS ORDERED: ONDANSETRON HCL INJ 2MG/ML 2ML 2 MG/ML VIAL IV PRN (12:15)
[2020-11-20] MEDS ORDERED: DEXTROSE 5%/0.45% SOD CHL 1,000 ML IV SCH (12:15)
[2020-11-20] MEDS ORDERED: HYDROCODONE/APAP 5MG-325MG TAB PO PRN (12:15)
[2020-11-20] MEDS ORDERED: MORPHINE SULFATE INJ 4 MG/ML INJ 1ML IV PRN (12:15)
[2020-11-20] MEDS ORDERED: DEXAMETHASONE SOD PHOS INJ 4 MG/ML VIAL ONE (13:23)
[2020-11-20] MEDS ORDERED: KETOROLAC TROMETHAMINE 30 MG/ML VIAL ONE (13:23)
[2020-11-20] MEDS ORDERED: POVIDONE IODINE 0.05% 0.05 % ML PO ONE (13:23)
[2020-11-20] MEDS ORDERED: PROPOFOL IV EMULSION 10 MG/ML 20 ML VIAL ONE (13:23)
[2020-11-20] MEDS ORDERED: LABETALOL HCL 5 MG/ML 20ML VIAL ONE (13:23)
[2020-11-20] MEDS ORDERED: LIDOCAINE HCL 2% JELLY 5 ML TUBE ONE (13:23)
[2020-11-20] MEDS ORDERED: NEOSTIGMINE 1 MG/ML 10ML VIAL ONE (13:23)
[2020-11-20] MEDS ORDERED: ROCURONIUM BROMIDE 10 MG/ML 5ML VIAL IV ONE (13:23)
[2020-11-20] MEDS ORDERED: LIDOCAINE HCL 2% LOCAL INJ 5 ML SDV VIAL INJ ONE (13:23)
[2020-11-20] MEDS ORDERED: ONDANSETRON HCL INJ 2MG/ML 2ML 2 MG/ML VIAL ONE (13:23)
[2020-11-20] MEDS ORDERED: SEVOFLURANE INHAL SOLN 250 ML PEN BTL ONE (13:23)
[2020-11-20] MEDS ORDERED: GLYCOPYRROLATE INJ 0.2 MG/ML VIAL ONE (13:23)
[2020-11-20] MEDS: CEFTRIAXONE 2 GM in SODIUM CHLORIDE 0.9% 100 ML IV SCH (14:50)
[2020-11-20] MEDS ORDERED: SODIUM CHLORIDE 0.9% 250ML 250 ML ONE (16:29)
[2020-11-20] MEDS: SIMVASTATIN 40 MG TAB PO SCH (20:50)
[2020-11-21 00:02] VITALS: BP 140/61
[2020-11-21 05:41] VITALS: BP_SYST 115; BP_SYST 161; BP_DIAS 64; BP_DIAS 71
[2020-11-21 07:44] VITALS: BP 170/66
[2020-11-21 08:00] VITALS: BP 170/66
[2020-11-21 11:40] VITALS: BP 161/67
[2020-11-21] MEDS: CEFTRIAXONE 2 GM in SODIUM CHLORIDE 0.9% 100 ML IV SCH (14:00)
[2020-11-21] MEDS: AMLODIPINE BESYLATE 5 MG TAB PO SCH (15:21)
[2020-11-21 16:00] VITALS: BP 143/71
== END 2020-11-21 16:47 | disposition home or self-care (01) | DRG 418 ==
LOC: ER 10:52 → ERHOLD 14:49 → MED/SURG 15:56
PROVIDERS: ADMIT Internal Medicine; ATTEND Internal Medicine
PROC: 0DB68ZX Excision of Stomach, Via Natural or Artificial Opening Endoscopic, Diagnostic (ICD-10-PCS; principal; 2020-11-18 15:30)
PROC: 0FT44ZZ Resection of Gallbladder, Percutaneous Endoscopic Approach (ICD-10-PCS; 2020-11-20)
DX: K81.2 Acute cholecystitis with chronic cholecystitis (principal); E87.2 Acidosis; R41.82 Altered mental status, unspecified; E78.5 Hyperlipidemia, unspecified; I10 Essential (primary) hypertension; K21.9 Gastro-esophageal reflux disease without esophagitis; M25.512 Pain in left shoulder; R51.9 Headache, unspecified; G89.4 Chronic pain syndrome; R10.13 Epigastric pain; K20.90 Esophagitis, unspecified without bleeding; K44.9 Diaphragmatic hernia without obstruction or gangrene; K29.70 Gastritis, unspecified, without bleeding; K31.7 Polyp of stomach and duodenum
CPT/HCPCS: 36415; 43239; 70450; 71275; 74174; 78227; 80048; 80053; 81001; 82140; 82150; 82550; 82553; 82948; 83036; 83605; 83690; 83735; 83880; 84100; 84443; 84484; 85025; 85610; 85730; 87040; 87071; 87086; 87205; 88304; 88305; 88312; 93005; 93306; 97139; 99251; 99284; A9537; J0696; J1100; J1650; J1885; J2001; J2250; J2405; J2543; J2710; J3010; J3370; J3480; J7030; J7050; Q9967; U0002

== ENCOUNTER 2021-10-27 01:45 | Emergency (ER) | payer MEDICARE ==
[~2021-10-27] VITALS: Ht 157.5 cm; Wt 65.8 kg
[~2021-10-27 01:45] MED LIST changes: +AMLODIPINE BESYL5 MG PO; +BACLOFEN10 MG PO; +FAMOTIDINE20 MG PO; +LOZOL 2.5MG2.5 MG PO; +METOPROLOL SUCC50 MG PO; +OMEPRAZOLE40 MG PO; +PRAVASTATIN SOD80 MG PO
[2021-10-27 02:36] LABS: CLARITY,URINE SL CLOUDY (CLEAR); COLOR,URINE YELLOW (YELLOW); KETONES,URINE NEGATIVE (NEGATIVE); LEUKOCYTE ESTERASE ,URINE 1+ (NEGATIVE); NITRITE,URINE NEGATIVE (NEGATIVE); PROTEIN,URINE DIPSTICK NEGATIVE (NEGATIVE); URINE UROBILINOGEN 0.2 mg/dL (0.2 - 1)
[2021-10-27 02:43] LABS: BACTERIA,URINE MODERATE /HPF; EPITHELIAL CELLS,URINE FEW /LPF; RBC,URINE 0-5 /HPF (0-5)
[2021-10-27] MEDS ORDERED: DEXAMETHASONE SOD PHOS 10 MG/1 ML VIAL IM ONE (02:45)
[2021-10-27] MEDS ORDERED: DEXAMETHASONE SOD PHOS 10 MG/1 ML VIAL ONE (02:57)
== END 2021-10-27 03:20 | disposition home or self-care (01) ==
LOC: ER 01:50
DX: N39.0 Urinary tract infection, site not specified (principal); M47.896 Other spondylosis, lumbar region; I10 Essential (primary) hypertension; E78.5 Hyperlipidemia, unspecified; E78.00 Pure hypercholesterolemia, unspecified; K21.9 Gastro-esophageal reflux disease without esophagitis; M54.9 Dorsalgia, unspecified; G89.29 Other chronic pain
CPT/HCPCS: 72100; 81001; 99283; J1100

== ENCOUNTER 2022-02-03 02:14 | Emergency (ER) | payer MEDICARE ==
[~2022-02-03] VITALS: Ht 157.5 cm; Wt 65.8 kg
[2022-02-03] MEDS ORDERED: ONDANSETRON HCL INJ 2MG/ML 2ML 2 MG/ML VIAL IV STA (02:26)
[2022-02-03] MEDS ORDERED: MAGNESIUM/ALUMINUM/SIMETHICONE 30 ML UDC PO ONE (02:30)
[2022-02-03] MEDS ORDERED: BELLADONNA ALK/PHENOBARBITAL 5 ML UDC PO ONE (02:30)
[2022-02-03] MEDS ORDERED: LIDOCAINE VISC 2% SOLN 15 ML UDC PO ONE (02:30)
[2022-02-03 02:33] LABS: BASOPHILS % 0.5 % (0.0-1.0); EOSINOPHILS # (AUTO) 0.2 (0.0-0.4); EOSINOPHILS % 2.6 % (0.0-6.0); HEMATOCRIT 43.5 % (34.2-44.1); HEMOGLOBIN 14.8 g/dL (12.0-16.0); LYMPHOCYTES # (AUTO) 2.6 (1.0-3.2); LYMPHOCYTES % 33.6 % (18.0-39.1); MEAN CORPUSCULAR HEMOGLOBIN 31.6 pg (28-32); MEAN CORPUSCULAR VOLUME 92.8 fL (81-99); MONOCYTES # (AUTO) 0.8 (0.2-0.8); MONOCYTES % 10.4 % (4.4-11.3); NEUTROPHILS # (AUTO) 4.1 (2.1-6.9); NEUTROPHILS % 52.8 % (38.7-80.0); PLATELET COUNT 223 x10e3/uL (140-360); RED BLOOD COUNT 4.69 x10e6/uL (3.6-5.1); RED CELL DISTRIBUTION WIDTH 12.5 % (11.7-14.4)
[2022-02-03] MEDS ORDERED: LIDOCAINE VISC 2% SOLN 15 ML UDC ONE (02:44)
[2022-02-03] MEDS ORDERED: BELLADONNA ALK/PHENOBARBITAL 5 ML UDC ONE (02:45)
[2022-02-03] MEDS ORDERED: MAGNESIUM/ALUMINUM/SIMETHICONE 30 ML UDC ONE (02:45)
[2022-02-03 02:56] LABS: ALANINE AMINOTRANSFERASE 19 IU/L (0-55); ALBUMIN 3.8 g/dL (3.5-5.0); ALKALINE PHOSPHATASE 70 IU/L (40-150); ANION GAP 17.6 mmol/L (8-16); BLOOD UREA NITROGEN 20 mg/dL (7-26); BUN/CREATININE RATIO 20 (6-25); CALCIUM 9.6 mg/dL (8.4-10.2); CARBON DIOXIDE 26 mmol/L (22-29); CHLORIDE 101 mmol/L (98-107); CREATINE KINASE 44 IU/L (29-168); CREATININE, SERUM 0.99 mg/dL (0.57-1.11); GLUCOSE 117 mg/dL (74-118); POTASSIUM 3.6 mmol/L (3.5-5.1); SODIUM 141 mmol/L (136-145)
== END 2022-02-03 03:53 | disposition home or self-care (01) ==
LOC: ER 02:24
DX: R10.13 Epigastric pain (principal); K29.70 Gastritis, unspecified, without bleeding; K21.9 Gastro-esophageal reflux disease without esophagitis; I10 Essential (primary) hypertension; E78.5 Hyperlipidemia, unspecified; M54.2 Cervicalgia; M54.9 Dorsalgia, unspecified; G89.29 Other chronic pain
CPT/HCPCS: 36415; 80053; 82550; 82553; 83690; 84484; 85025; 93005; 99284; C9113